=== PATIENT | female | born 1950 | race Caucasian/White ===

== ENCOUNTER 2016-11-14 07:59 | Emergency (ER) | payer MEDICARE, OTHER ==
--- NOTE | 2016-11-14 08:11 | ED Physician Documentation ---
General Adult - HISTORIAN Historian: patient - HPI Stated Complaint: fall Chief Complaint: General Adult Onset: minutes Timing: still present Severity: moderate Further Comments: yes (Pt is a 66 yo female who fell from standing and injured her R elbow. Pt did not strike her head or injure her neck. Pt has an abrasion to her R elbow.) - ROS CONST: no problems EYES/ENT: none CVS/RESP: none GI/: none MS/SKIN/LYMPH: other (R elbow pain, abrasion) - PAST HX Past History: other (cancer, hysterectomy, abd hernia) Allergies/Adverse Reactions: Allergies Allergy/AdvReac Type Severity Reaction Status Date / Time codeine Allergy Verified 11/14/16 08:11 oxycodone Allergy Verified 11/14/16 08:11 Penicillins Allergy Verified 11/14/16 08:11 - SOCIAL HX Smoking History: non-smoker - FAMILY HX Family History: No - REVIEWED ASSESSMENTS Nursing Assessment Reviewed: Yes Vitals Reviewed: Yes Progress - Progress Progress: X-ray R elbow: Degenerative changes. No fracture. Topical antibiotic to R elbow abrasion. ED Results Lab/Radiology - Orders Orders: ED Orders Category Date Time Status ELBOW 2 VIEWS [RAD] Stat Exams 11/14/16 Ordered General Adult Physical Exam - PHYSICAL EXAM GENERAL APPEARANCE: mild distress EENT: eye inspection normal NECK: normal inspection, supple RESPIRATORY: no resp distress, chest non-tender, breath sounds normal CVS: reg rate & rhythm, heart sounds normal ABDOMEN: soft, no organomegaly, normal bowel sounds BACK: normal inspection, no CVA tenderness SKIN: other (R elbow abrasion) EXTREMITIES: non-tender, normal range of motion, no evidence of injury NEURO: oriented X3, CN's nml as tested, motor nml, sensation nml Discharge Clincal Impression: fall, elbow injury Referrals: Jesse Barrera MD [Primary Care Provider] - Condition: Good Disposition: 01 HOME, SELF-CARE Decision to Admit: NO Decision Time: 08:52
[2016-11-14 08:18] VITALS: BP 131/51
--- NOTE | 2016-11-14 14:23 | Diagnostic Imaging Report ---
[facility] [address] [facility].[address] [address] Report Submission Date: November 14, 2016 8:49:40 AM CDT Patient Study Name: UNRULY MOMIN Date: November 14, 2016 8:21:35 AM CDT Modality Type: CR Gender: F Description: UPPER EXTREMITY : 46 Institution: [facility] Physician RO BAEZ - ER Right elbow -two views CLINICAL HISTORY: Fall today. Pain and laceration. FINDINGS: Examination right elbow in AP and lateral views demonstrates degenerative changes with slight narrowing of the joint space and osteophyte formation on the coronoid process of the ulna. There is no evident fracture or joint effusion. IMPRESSION: Degenerative changes. No fracture. Electronically signed on November 14, 2016 8:49:40 AM CDT by: Piter STEPHEN
== END 2016-11-14 09:00 | disposition home or self-care (01) ==
LOC: ED 07:59
DX: S50.311A Abrasion of right elbow, initial encounter (principal); W19.XXXA Unspecified fall, initial encounter; Y93.9 Activity, unspecified; Y99.9 Unspecified external cause status
CPT/HCPCS: 73070

== ENCOUNTER 2017-09-12 09:31 | Outpatient (CLI) | payer MEDICARE, OTHER ==
--- NOTE | 2017-09-12 18:04 | Diagnostic Imaging Report ---
WILFREDO REECE [facility] [address] [facility].[address] [address] Report Submission Date: Sep 12, 2017 10:05:29 AM CDT Patient Study Name: UNRULY MOMIN Date: Sep 12, 2017 9:42:19 AM CDT Modality Type: DX Gender: F Description: CHEST : 46 Institution: [facility] Physician: WILFREDO REECE HISTORY: 67-year-old female with cough and shortness of breath, history of endometrial cancer. COMPARISON: None available. TECHNIQUE: 2 views of the chest were performed. FINDINGS: There is a right chest Port-A-Cath with its tip in the upper SVC. No pneumothorax, consolidative infiltrates, pleural effusions, or pulmonary edema. The heart is not enlarged. There is bilateral acromioclavicular hypertrophy. There is thoracic spondylosis. IMPRESSION: No acute cardiopulmonary process identified. Electronically signed on Sep 12, 2017 10:05:29 AM CDT by: Griffin STEPHEN
== END 2017-09-12 09:42 ==
LOC: RAD 09:31
PROVIDERS: ATTEND Family Medicine
DX: R05 Cough (principal); R06.00 Dyspnea, unspecified
CPT/HCPCS: 71046